=== PATIENT | female | born 1940 | race Hispanic/Latino ===

== ENCOUNTER → 2019-12-24 | Outpatient (CLI) | payer MEDICARE ==
--- NOTE | 2019-12-25 11:37 | CT ---
TECHNIQUE: Axial images of the lumbar spine were obtained with multiple reconstructions provided. This exam was performed according to our departmental dose-optimization program, which includes automated exposure control, adjustment of the mA and/or kV according to patient size and/or use of iterative reconstruction technique. CLINICAL HISTORY PROVIDED: LOW BACK PAIN COMPARISON: June 11, 2009 FINDINGS: Five lumbar type vertebral bodies are present. Alignment: 20 degrees rightward curvature of the lumbar spine. Degenerative stairstep retrolisthesis. Fracture: None present. Paraspinal Soft Tissues/ Retroperitoneum: Similar left renal cysts. Left renal atrophy. Atherosclerotic disease. No acute findings. L1/2: Small symmetric disc bulge. Bilateral facet hypertrophy. Mild bilateral neural foraminal narrowing. No significant central canal stenosis. L2/3: Partially fused disc space. Posterior ridging osteophytes asymmetric to the left. Mild to moderate bilateral neural foraminal narrowing. Mild central canal stenosis. Bilateral facet hypertrophy. L3/4: Disc space narrowing with endplate degenerative change and vacuum disc phenomenon. Diffuse symmetric disc bulge osteophyte complex. Mild right and severe left neural foraminal narrowing. Moderate central canal stenosis. Bilateral facet hypertrophy with thickening of the ligamentum flavum. L4/5: Disc space narrowing with endplate degenerative change and vacuum disc phenomenon. Diffuse symmetric disc bulge osteophyte complex. Moderate right and mild left neural foraminal narrowing. Mild central canal stenosis. Bilateral facet hypertrophy with thickening of the ligamentum flavum. L5/S1: Posterior disc space narrowing with a small symmetric disc bulge. Mild to moderate bilateral neural foraminal narrowing. No significant central canal stenosis. Bilateral facet hypertrophy. IMPRESSION: Multilevel lumbar spondylosis as above. No acute fracture or subluxation. Electronically signed by: Samm Whitman MD 12/25/2019 11:35 AM [facility]
== END ==
LOC: CT 10:29
PROVIDERS: ATTEND General Practice
DX: M51.36 Other intervertebral disc degeneration, lumbar region (principal); M47.896 Other spondylosis, lumbar region; R93.7 Abnormal findings on diagnostic imaging of other parts of musculoskeletal system

== ENCOUNTER → 2020-01-02 | Outpatient (CLI) | payer MEDICARE ==
--- NOTE | 2020-01-03 17:16 | NM ---
EXAM DESCRIPTION: Bone Scan, 3Phase: Nuclear Medicine CLINICAL HISTORY: 79 years Female LOWER BACK PAIN, ABNORMAL LUMBAR XRAY COMPARISON: CT scan of the lumbar spine December 23. Ultrasound of the kidneys bilaterally May 2009. TECHNIQUE: Patient injected with 25.6 mCi of technetium 99M MDP IV. Immediate flow gamma camera images were obtained of the abdomen, pelvis, and included thoracolumbar spine and sacrum, posterior projection. "Blood pool" images were then obtained of the same regions as phase I. Delayed gamma camera images of the thorax abdomen and pelvis, utilizing SPECT imaging, were obtained 3 hr after injection. FINDINGS: first-flow phase: flow visualized in the aorta, spleen, liver, and bilateral kidneys. Minimal activity in the spine. Left kidney decreased in size consistent with findings on lumbar CT scan and previous renal sonogram. Second-blood pool phase: Increased activity seen in the sternum, multiple sites on the lumbar spine predominantly at L2-3 and L3-4 disc spaces and facets, and heterogeneous activity in the bilateral ribs. Also increased activity in several sites in the mid and lower thoracic spine. Third-delay phase, with and without SPECT imaging: Increased activity at L3-L4 and L5 bilaterally including the L2-L3 disc space. Central activity in the thoracic spine vertebral bodies bilaterally at T7, T8, and T9. Also on the right posteriorly at T11. Heterogeneous activity bilaterally in the posterior and lateral ribs predominantly from T4 to T11. Diffuse activity in the sternum. Heterogeneously abnormal activity in the bilateral scapula, more on the right posterior, and the left anterior possibility superior medial aspect of the right scapula. Heterogeneously increased activity in the bilateral iliac crests and the bilateral ischial tuberosities. Again noted is decreased size and function of the left kidney. No other abnormal soft tissue activity. IMPRESSION: 1. Activity in the lumbar spine is related to advanced spondylosis from L2-L3 to L5-S1. 2. Focal activity in the thoracic spine may be related to spondylosis, but cannot exclude metastatic disease or metabolic process. Renal osteodystrophy should be considered. 3. Heterogeneous focal abnormal activity in the iliac crests and issued tuberosities, bilateral ribs, sternum, and bilateral scapula. This is most likely related to metastatic disease, renal osteodystrophy, or other metabolic disease. Recommend correlation with thoracic spine radiographs, scapular radiographs, and bilateral rib series. 4. Diminished activity and size of the left kidney consistent with poor renal function. Electronically signed by: Wilman Tolentino MD 01/03/2020 5:15 PM [facility]
== END ==
LOC: NM 08:56
PROVIDERS: ATTEND General Practice
DX: M47.896 Other spondylosis, lumbar region (principal); M47.897 Other spondylosis, lumbosacral region; M89.9 Disorder of bone, unspecified; N28.9 Disorder of kidney and ureter, unspecified
CPT/HCPCS: 78315; A9503